=== PATIENT | female | born 1965 | race Caucasian/White ===

== ENCOUNTER 2019-01-22 16:13 | Emergency (ER) | payer MEDICAID ==
[~2019-01-22] VITALS: Ht 162.6 cm; Wt 167.8 kg
[2019-01-22 16:13] VITALS: BP_SYST 156
[~2019-01-22 16:13] MED LIST: [UNRECOGNIZED DRUG - CODE] IV
--- NOTE | 2019-01-22 16:13 | NUR ---
BROUGHT BACK TO [facility] AND TRIAGED. REPORT GIVEN TO DESI
--- NOTE | 2019-01-22 16:27 | NUR ---
PATIENT SITTING IN CHAIR COMPLAINING OF SHORTNESS OF BREATH, COUGH, AND CHEST PRESSURE. PATIENT SAID SHE HAS BEEN SICK FOR A MONTH. PATIENT SAID IT STARTED GETTING WORST YESTERDAY. PATIENT STATES SHE CANT LAY DOWN BECAUSE SHE CANT BREATH IF SHE DOES. PATIENT STATES SHE TOOK NEBULIZER AT HOME BUT DIDNT HELP. PATIENT NOT COMPLAINIING OF NAUSE OR VOMITING. PATIENT ALERT AND ORIENTED X4.
--- NOTE | 2019-01-22 16:29 | NUR ---
PATIENT WHEELED TO GET CHEST X RAY.
--- NOTE | 2019-01-22 16:41 | NUR ---
ER Dr. ORELLANA at bedside examining patient.
--- NOTE | 2019-01-22 17:00 | NUR ---
PATIENT TRANSFERED TO BED 7.
[2019-01-22 17:06] LABS: CALCIUM 9.3 mg/dL (8.4-11.0); CREATININE 1.22 mg/dL (0.55-1.30); HEMATOCRIT 30.7 % (36-48); HEMOGLOBIN 9.9 g/dL (12.0-16.0); MEAN CORPUSCULAR VOLUME 89 fL (79.0-98.0); RED BLOOD CELL COUNT(AUTO) 3.47 MIL/uL (4.2-6.2); WHITE BLOOD COUNT (AUTO) 7.4 K/uL (4.8-10.8)
[2019-01-22 17:07] LABS: BASOPHILS % (AUTO) 0.6 % (0.0-2.0); EOSINOPHILS # (AUTO) 0.1 K/uL (0.0-0.4); EOSINOPHILS % (AUTO) 1.2 % (0.0-4.0); LYMPHOCYTES % (AUTO) 13.6 % (20.5-51.5); MEAN CORPUSCULAR HEMOGLOBIN 29 pg (27-31); MEAN CORPUSCULAR HGB CONC 32 % (32-36); MONOCYTES # (AUTO) 0.4 K/uL (0.0-1.0); MONOCYTES % (AUTO) 5.5 % (1.7-9.3); NEUTROPHILS # (AUTO) 5.8 K/uL (1.8-7.7); NEUTROPHILS % (AUTO) 79.1 % (40.0-70.0); PLATELET COUNT (AUTO) 215 K/uL (130-430); RED CELL DISTRIBUTION WIDTH 16.7 % (9.0-15.0)
[2019-01-22 17:11] LABS: ALBUMIN 3.3 g/dL (3.4-4.8); TOTAL BILIRUBIN 0.3 mg/dL (0.0-1.0)
[2019-01-22 18:47] LABS: INR 1.5 (0.8-1.2); PROTHROMBIN TIME 15.2 SECS (9.5-12.5)
--- NOTE | 2019-01-22 19:20 | NUR ---
Took over care for pt from [place], Pt resting on gurney with rails up. VSS. No s/s of acute distress.
--- NOTE | 2019-01-22 19:24 | NUR ---
ENDORSED CARE TO NIGHT NURSE PANCHITO
--- NOTE | 2019-01-22 20:05 | NUR ---
Family at bedside, pt resting on gurney with rails up
--- NOTE | 2019-01-22 20:45 | NUR ---
Dr. Bianchi bedside to update pt and family
--- NOTE | 2019-01-22 20:50 | NUR ---
Pt taken to Radiology for CTA with contrast. VSS, no s/s of acute distress
[2019-01-22] MEDS ORDERED: IOHEXOL 350 mgI/mL, 150 ML INFUS..BTL IV ONE (20:56)
--- NOTE | 2019-01-22 21:04 | NUR ---
Pt back from CT Scan, VSS, no acute distress. Resting on gurney with rails up
[2019-01-22] MEDS ORDERED: IPRATROPIUM/ALBUTEROL SULFATE 3 ML AMPUL.NEB (DUONEB) INH ONE (21:15)
--- NOTE | 2019-01-22 21:35 | NUR ---
Pt updated by Dr. Bianchi regarding radiological studies
[2019-01-22 23:40] VITALS: BP_SYST 136
--- NOTE | 2019-01-22 23:40 | NUR ---
Patient given written and verbal discharge instructions and verbalizes understanding. ER MD discussed with patient the results and treatment provided. Patient in stable condition. ID arm band removed. IV catheters removed intact and dressing applied, no active bleeding. Rx of Augmentin given. Patient educated on pain management and to follow up with PMD. Pain Scale 0/10. Opportunity for questions provided and answered. Medication side effect fact sheet provided.
== END 2019-01-22 23:40 | disposition home or self-care (01) ==
LOC: SED 16:13
DX: J18.9 Pneumonia, unspecified organism (principal); E11.9 Type 2 diabetes mellitus without complications; I10 Essential (primary) hypertension; M19.90 Unspecified osteoarthritis, unspecified site; Z88.1 Allergy status to other antibiotic agents; Z88.2 Allergy status to sulfonamides; Z88.5 Allergy status to narcotic agent
CPT/HCPCS: 36415; 71045; 71275; 80053; 83880; 84484; 85025; 85379; 85610; 85730; 93005; 99284; J7620; Q9967

== ENCOUNTER 2021-11-27 09:50 | Outpatient (CLI) | payer MEDICAID, SELFPAY ==
[~2021-11-27] VITALS: Ht 162.6 cm; Wt 125.2 kg
== END 2021-11-27 12:00 | disposition home or self-care (01) ==
LOC: SLB 09:50 → EDSTATUS 11-30 09:30
PROVIDERS: ATTEND Internal Medicine Gastroenterology
DX: Z01.812 Encounter for preprocedural laboratory examination (principal); R11.2 Nausea with vomiting, unspecified
CPT/HCPCS: U0003